=== PATIENT | male | born 1980 | race Caucasian/White ===

== ENCOUNTER 2021-09-01 20:53 | Emergency (ER) | payer BC ==
[2021-09-01] MEDS ORDERED: Sodium Chloride 0.9% 10 ML Syringe FLUSH PRN (20:59)
[2021-09-01] MEDS ORDERED: Aspirin 81 MG Tab.Chew PO ONE (21:25)
[2021-09-01 21:40] LABS: ANION GAP 13.8 mEq/L (7-13); CHLORIDE,CL 101 mmol/L (98-107); SODIUM,NA 139 mmol/L (136-145)
== END 2021-09-01 22:21 | disposition home or self-care (01) ==
LOC: DL.ED 20:53
DX: R07.9 Chest pain, unspecified (principal); I10 Essential (primary) hypertension; Z88.2 Allergy status to sulfonamides
CPT/HCPCS: 36415; 80053; 83690; 83735; 84443; 84484; 85025; 85379; 86140; 93005; 93010; 99284; 99285-25; A9270-GY